=== PATIENT | male | born 1995 | race Caucasian/White ===

== ENCOUNTER 2017-03-02 08:05 | Day surgery (SDC) | payer OTHER ==
[2017-03-01 08:43] VITALS: BMI 27.3
[~2017-03-02 08:05] MED LIST: LACTATED RINGERS 1,000 ML IV SCH; LIDOCAINE 1% 20 ML VIAL (10MG/ML) FOR IV START INTRADERMA PRN
[2017-03-02 08:36] VITALS: RESP 16; TEMP 98.3
[2017-03-02] MEDS ORDERED: PROPOFOL 10 MG/ML 20 ML VIAL IV ONE (09:05)
[2017-03-02] MEDS ORDERED: LIDOCAINE 1% INJ 10MG/ML (20 ML MDV) ONE (09:05)
--- NOTE | 2017-03-02 09:16 | P.PCN ---
Date of Procedure: 03/02/17 Procedure(s) Performed: BRIEF HISTORY: Patient is a 21-year-old, pleasant, white male, scheduled for an upper endoscopy as a part of evaluation of chronic nausea vomiting for the last 2 weeks' duration. He does complain of epigastric pain and heartburn. He was tried on Prilosec 20 mg daily with no help. Recently was started on dexilant and Carafate and still remains symptomatic and hence he scheduled for an upper endoscopy to evaluate further. PROCEDURE PERFORMED: Esophagogastroduodenoscopy with biopsy PREOPERATIVE DIAGNOSIS: The gastric pain/heartburn and chronic nausea vomiting of 2 weeks duration. IV sedation per anesthesia. PROCEDURE: After informed consent was obtained, the patient was brought into the endoscopy unit. IV sedation was administered by Anesthesia under continuous monitoring. Initially the Olympus GIF-140 video endoscope was inserted into the mouth. Esophagus intubated without any difficulty. It was gradually advanced into the stomach and duodenum and carefully examined. The bulb and the second part of the duodenum appeared normal. Biopsies from the duodenum to rule out celiac disease. The scope at this time was withdrawn to the stomach, adequately insufflated with air, and upon careful examination, mucosa of the antrum, had mild gastritis and biopsies were done from this area. The body, cardia and the fundus appeared normal. The scope was then withdrawn into the esophagus. The GE junction was located at 39 cm from the incisors. Small sliding Hiatal hernia noted. The esophagus appeared normal. There were no erosions or ulcerations seen, biopsies were done from the distal esophagus and the patient tolerated the procedure well. IMPRESSION: 1. Mild antral gastritis. 2. Small hiatal hernia but no evidence of esophagitis. RECOMMENDATIONS: The findings of this examination were discussed with the patient as well as his family. He was advised to continue with her current medications and follow antireflux measures..
[2017-03-02 10:02] VITALS: BP 116/52; PULSE 65
== END 2017-03-02 10:11 | disposition home or self-care (01) ==
LOC: ORWHC2ENDO 08:05
PROVIDERS: ATTEND Internal Medicine Gastroenterology
DX: K29.80 Duodenitis without bleeding (principal); K29.50 Unspecified chronic gastritis without bleeding; K21.0 Gastro-esophageal reflux disease with esophagitis; K20.0 Eosinophilic esophagitis; K44.9 Diaphragmatic hernia without obstruction or gangrene; Z79.899 Other long term (current) drug therapy; Z79.891 Long term (current) use of opiate analgesic
CPT/HCPCS: 88305; 88342; 43239; J2001; J2704; 76700

== ENCOUNTER → 2017-03-02 | Outpatient (CLI) | payer OTHER ==
--- NOTE | 2017-03-02 08:18 | US ---
EXAMINATION TYPE: US abdomen complete DATE OF EXAM: 03/02/2017 8:04 AM COMPARISON: NONE CLINICAL HISTORY: R10.3Epigastric pain,R11.2Nausea with vomiting. EXAM MEASUREMENTS: Liver Length: 11.8 cm Gallbladder Wall: 0.2 cm CBD: 0.3 cm Spleen: 10.2 cm Right Kidney: 10.4 x 4.5 x 5.5 cm Left Kidney: 12.3 x 5.1 x 4.8 cm Pancreas: limited vis due to bowel gas Liver: wnl Gallbladder: No stones seen Evidence for sonographic Wilson's sign: No CBD: wnl Spleen: wnl Right Kidney: cyst upper pole measuring 1.7 x 1.3x 1.5 cm Left Kidney: No hydronephrosis or masses seen Upper IVC: wnl Abd Aorta: wnl The liver is homogenous. The intrahepatic portion of the IVC and proximal abdominal aorta are within normal limits. There is no evidence of cholelithiasis. Common bile duct is unremarkable. The visu alized portions of the pancreas are homogenous. The spleen is unremarkable. Kidneys are symmetric a nd free of hydronephrosis. Left renal cyst as noted above. No solid lesions detected. IMPRESSION: 1. Left renal cyst as discussed. Otherwise unremarkable study.
== END | disposition home or self-care (01) ==
LOC: RADUSWWP 07:34
PROVIDERS: ATTEND Family Medicine
DX: N28.1 Cyst of kidney, acquired (principal)
CPT/HCPCS: 76700

== ENCOUNTER → 2022-05-05 | Outpatient (CLI) | payer OTHER ==
--- NOTE | 2022-05-05 20:28 | CONS ---
CONSULTATION DATE OF SERVICE: 05/05/2022 This 26-year-old gentleman has been evaluated in the sleep center for possible obstructive sleep apnea-hypopnea syndrome. HISTORY OF PRESENT ILLNESS/SLEEP-WAKE EVALUATION: Patient's usual sleep schedule is from 11 p.m. until 6:30 a.m. on weekdays and from midnight until 8 a.m. on weekends. No problems with falling asleep, although he has a TV set in the bedroom. He sleeps in different positions. According to his , he has loud snoring and witnessed episodes of stopped breathing during sleep. The patient wakes up from sleep once, usually without nocturia. Positive history of sleeptalking, sitting up in sleep. No history of hypnagogic hallucinations, sleep paralysis or cataplexy. During the day the patient may feel sleepiness, worries about his sleep. [place] Sleepiness Scale is increased to 10. He may take one nap, usually in the evening hours. PAST MEDICAL HISTORY: Positive for migraines, acid reflux. CURRENT MEDICATIONS: Fioricet. SOCIAL HISTORY: Positive for smoking; quit cigarette smoking about 2 years ago. Occasional smoking now. Alcohol consumption occasional. FAMILY HISTORY: Hypertension, heart problems, sinus problems, thyroid problems. REVIEW OF SYSTEMS: Snoring, sleepiness during the day. No fevers. No double vision. No recent chest pain. No shortness of breath. No abdominal pain. No bleeding episodes. No blood in the urine. No seizure episodes. PHYSICAL EXAMINATION: GENERAL: Pleasant gentleman without distress. VITAL SIGNS: BP 130/83, HR 77, RR 14, height 5 feet 10 inches, weight 214 pounds, body mass index 30.7, temperature 97.5, oxygen saturation at room air 98%. HEENT: PERRLA, EOMI, evaluation of oropharynx showed tongue protrudes midline. Extremely low position of soft palate; Mallampati IV. NECK: Supple, no JVD. Thyroid is not palpable. Neck measures 15 inches in circumference. LUNGS: Clear to percussion and to auscultation. Good air exchange. No wheezing or rhonchi. HEART: S1, S2 regular. No murmurs, gallops, or rubs. ABDOMEN: Soft and nontender. Bowel sounds are present. No organomegaly appreciated. EXTREMITIES: No clubbing or cyanosis. FORGE TENDER: Awake, alert, and oriented X3. Cranial nerves 2 to 7 intact. There is no fasciculation or atrophy. noted. No focal deficits observed. IMPRESSION: 1. Loud snoring, witnessed episodes of stopped breathing during sleep, extremely low position of soft palate, Mallampati IV, sleepiness, [place] Sleepiness Scale of 10; obstructive sleep apnea-hypopnea syndrome. 2. Migraines. Sometimes episodes start after awakening from sleep. 3. Mild obesity; body mass index 30.7. 4. History of acid reflux. PLAN: 1. Polysomnography for evaluation of patient's breathing during sleep. 2. CPAP/BiPAP titration if sleep study confirms obstructive sleep apnea-hypopnea syndrome. 3. Preferable position during sleep on the side. 4. No driving if patient feels any sleepiness. 5. I will see patient for follow up visit to explain results of testing and following plan. Thank you very much for referring this patient for consultation. Sincerely, Paul Krause MD, PhD, FAASM Diplomat of [employer] Sleep Medicine Board of [employer] [facility] [place] MMODL / JOSEPHN: [id number] /
== END ==
LOC: SLEEP 14:26
PROVIDERS: ATTEND Internal Medicine
DX: G47.33 Obstructive sleep apnea (adult) (pediatric) (principal); G43.909 Migraine, unspecified, not intractable, without status migrainosus; E66.9 Obesity, unspecified; Z68.30 Body mass index [BMI] 30.0-30.9, adult; Z87.19 Personal history of other diseases of the digestive system; Z87.891 Personal history of nicotine dependence
CPT/HCPCS: 99211

== ENCOUNTER 2023-04-24 19:22 | Emergency (ER) | payer OTHER ==
[2023-04-24 19:39] VITALS: BP 134/73; PULSE 67; RESP 18; TEMP 98.4
--- NOTE | 2023-04-24 19:55 | ED ---
General Adult HPI - General Chief complaint: Wound/Laceration Stated complaint: Laceration to head Time Seen by Provider: 04/24/23 19:40 Source: patient Mode of arrival: ambulatory Limitations: no limitations - History of Present Illness Initial comments: 27-year-old male presents to the emergency department chief complaint of head laceration. Patient states that he was hunting for Garter snakes with his family when a T post broke and hit him in the head. He denies loss of consciousness, blood thinners. He states that there was a lot of bleeding coming from the area. Patient has a history of migraine headaches and takes medication for this. - Related Data Home Medications Medication Instructions Recorded Confirmed Butalb/Acetaminophen/Caffeine 1 - 2 each PO DAILY PRN 03/01/17 03/01/17 [Fioricet 50-325-40] Dexilant(Unk Dose) 1 tab PO DAILY 03/01/17 03/01/17 Ranitidine HCl [Zantac] 150 mg PO DAILY PRN 03/01/17 03/01/17 Topiramate [Topamax] 50 mg PO BID 03/01/17 03/01/17 Allergies Allergy/AdvReac Type Severity Reaction Status Date / Time No Known Allergies Allergy Verified 04/24/23 19:39 Review of Systems ROS Statement: Those systems with pertinent positive or pertinent negative responses have been documented in the HPI. ROS Other: All systems not noted in ROS Statement are negative. Past Medical History Past Medical History: No Reported History History of Any Multi-Drug Resistant Organisms: None Reported Past Surgical History: No Surgical Hx Reported Past Psychological History: No Psychological Hx Reported Smoking Status: Vaper Past Alcohol Use History: Rare Past Drug Use History: Marijuana General Exam Limitations: no limitations General appearance: alert, in no apparent distress Head exam: Present: other (Small abrasion to anterior scalp) Eye exam: Present: normal appearance, PERRL, EOMI. Absent: scleral icterus, conjunctival injection, periorbital swelling ENT exam: Present: normal exam, mucous membranes moist Neck exam: Present: normal inspection. Absent: tenderness, meningismus, lymphadenopathy Respiratory exam: Present: normal lung sounds bilaterally. Absent: respiratory distress, wheezes, rales, rhonchi, stridor Cardiovascular Exam: Present: regular rate, normal rhythm, normal heart sounds. Absent: systolic murmur, diastolic murmur, rubs, gallop, clicks GI/Abdominal exam: Present: soft, normal bowel sounds. Absent: distended, tenderness, guarding, rebound, rigid Extremities exam: Present: normal inspection, full ROM, normal capillary refill. Absent: tenderness, pedal edema, joint swelling, calf tenderness Back exam: Present: normal inspection Neurological exam: Present: alert, oriented X3, CN II-XII intact Psychiatric exam: Present: normal affect, normal mood Skin exam: Present: warm, dry, intact, normal color. Absent: rash Course Vital Signs 04/24/23 19:37 Temperature 98.4 F Pulse Rate 67 Respiratory 18 Rate Blood Pressure 134/73 O2 Sat by Pulse 99 Oximetry Medical Decision Making - Medical Decision Making Was pt. sent in by a medical professional or institution ([facility] Lopez, SCR[employer]GER, urgent care, hospital, or long-term...) When possible be specific @ -No Did you speak to anyone other than the patient for history (EMS, parent, family, police, friend...)? What history was obtained from this source @ -No Did you review nursing and triage notes (agree or disagree)? Why? @ -I reviewed and agree with nursing and triage notes Were old charts reviewed (outside hosp., previous admission, EMS record, old EKG, old radiological studies, urgent care reports/EKG's, long-term records)? Report findings @ -No old charts were reviewed Differential Diagnosis (chest pain, altered mental status, abdominal pain women, abdominal pain men, vaginal bleeding, weakness, fever, dyspnea, syncope, he adache, dizziness, GI bleed, back pain, seizure, CVA, palpatations, mental health, musculoskeletal)? @ -Laceration, abrasion, scalp hematoma, this list is not all-inclusive EKG interpreted by me (3pts min.). @ -None X-rays interpreted by me (1pt min.). @ -None done CT interpreted by me (1pt min.). @ -None done U/S interpreted by me (1pt. min.). @ -None done What testing was considered but not performed or refused? (CT, X-rays, U/S, labs)? Why? @ -CT of brain was considered but this was a low mechanism injury and patient is otherwise feeling and acting normally What meds were considered but not given or refused? Why? @ -None Did you discuss the management of the patient with other professionals (professionals i.e. Dr., PA, SCRAP CHARGER, lab, RT, psych nurse, secondary social studies teacher, echocardiography radiology technologist, teacher, bomb squad officer, casework specialist)? Give summary @ -No Was smoking cessation discussed for >3mins.? @ -No Was critical care preformed (if so, how long)? @ -No Were there social determinants of health that impacted care today? How? (Ho melessness, low income, unemployed, alcoholism, drug addiction, transportation, low edu. Level, literacy, decrease access to med. care, senior living, rehab)? @ -No Was there de-escalation of care discussed even if they declined (Discuss DNR or withdrawal of care, Hospice)? DNR status @ -No What co-morbidities impacted this encounter? (DM, HTN, Smoking, COPD, CAD, Cancer, CVA, ARF, Chemo, Hep., AIDS, mental health diagnosis, sleep apnea, morbid obesity)? @ -None Was patient admitted / discharged? Hospital course, mention meds given and route, prescriptions, significant lab abnormalities, going to OR and other pertinent info. @ -Discharged. Patient presented emergency department chief complaint of scalp bleeding after being hit in the head at the T post he was attempting to put on the ground. The area was cleaned and there was only a small abrasion to the area which did not require repair. Patient was given strict return precautions. Patient discharged in stable condition. Case discussed with my attending, Dr. Quiles. Undiagnosed new problem with uncertain prognosis? @ -No Drug Therapy requiring intensive monitoring for toxicity (Heparin, Nitro, Insulin, Cardizem)? @ -No Were any procedures done? @ -No Diagnosis/symptom? @ -scalp abrasion Acute, or Chronic, or Acute on Chronic? @ -Acute Uncomplicated (without systemic symptoms) or Complicated (systemic symptoms)? @ -Uncomplicated Side effects of treatment? @ -No Exacerbation, Progression, or Severe Exacerbation? @ -No Poses a threat to life or bodily function? How? (Chest pain, USA, DC, pneumonia, PE, COPD, DKA, ARF, appy, cholecystitis, CVA, Diverticulitis, Homicidal, Suicidal, threat to staff... and all critical care pts) @ -No Disposition Clinical Impression: Scalp abrasion Disposition: HOME SELF-CARE Condition: Stable Instructions (If sedation given, give patient instructions): Acute Wound Care (ED) Additional Instructions: Please return to the emergency department for new or worsening symptoms. Is patient prescribed a controlled substance at d/c from ED?: No Referrals: Sharonda Coleman DO [Primary Care Provider] - 1-2 days Time of Disposition: 20:09
[2023-04-24] MEDS ORDERED: DIPH,PERTUS(ACELL)TETVAC-LF 0.5 ML VIAL IM ONE (20:01)
== END 2023-04-24 20:15 | disposition home or self-care (01) ==
LOC: EC 19:22
DX: S00.01XA Abrasion of scalp, initial encounter (principal); F17.290 Nicotine dependence, other tobacco product, uncomplicated; F12.90 Cannabis use, unspecified, uncomplicated; Z23 Encounter for immunization; W22.8XXA Striking against or struck by other objects, initial encounter
CPT/HCPCS: 90471; 90715; 99282